=== PATIENT | female | born 1995 | race Caucasian/White ===

== ENCOUNTER 2019-12-24 11:25 | Observation (INO) | payer OTHER, SELFPAY ==
--- NOTE | ~2019-12-24 | US_ITS ---
EXAMINATION: US renal BI DATE: 12/24/2019 13:45 INDICATION: Left abdominal pain. with estimated gestational age of 28 weeks. TECHNIQUE: Multiple ultrasound grayscale images of the kidneys were obtained. COMPARISON: CT abdomen and pelvis 09/05/2018 FINDINGS: The right kidney measures 10.9 x 6.3 x 4.9 cm. The left kidney measures 11.1 x 4.8 x 4.7 cm. The kidn eys demonstrate normal parenchymal echogenicity. There is a 1.1 cm cyst in left kidney. There is no h ydronephrosis. The bladder is not well distended. IMPRESSION: 1. Normal kidney sizes. No hydronephrosis. Reviewed, dictated and finalized at location A.
[2019-12-24 12:25] LABS: Add Urine Microscopic? YES; Appearance Urine Cloudy (Clear); Bacteria Urine Trace /hpf; Bilirubin Urine Negative (Negative); Blood Urine Negative (Negative); Color Urine Yellow (Yellow); Glucose Urine UA Negative (Negative); Ketones Urine Negative (Negative); Leukocyte Esterase Ur 1+ LEU/UL (NEGATIVE); Mucus Urine Rare /lpf; Nitrate Urine Negative (Negative); Protein Urine 1+ mg/dL (Negative); Specific Grav Ur 1.018 (1.001-1.035); Squamous Epithelial Cell Urine Many /hpf (Few); Urobilinogen Urine Negative mg/dL (<2.0)
[2019-12-24] MEDS: SODIUM CHLORIDE 0.9% IV 1,000 ML 999 ML IV CONT (13:58)
[2019-12-24 14:22] LABS: Hematocrit 29.4 % (37.0-47.0); Hemoglobin 9.9 g/dL (12.0-15.0); Mean Corpuscular HGB Conc 33.7 g/dl (32-36); Mean Corpuscular Hemoglobin 30.4 pg (26-34); Mean Corpuscular Volume 90.2 fl (80-100); Platelet Count Result 311 k/mm3 (150-375); Red Blood Count 3.26 M/mm3 (4.2-5.4); Red Cell Distribution Width 12.6 % (11.5-14.5); White Blood Count 11.5 K/mm3 (4.5-10.0)
[2019-12-24 14:24] LABS: Alanine Aminotransferase 12 U/L (4-35); Albumin Level 3.5 g/dL (3.5-5.1); Alkaline Phosphatase 81 U/L (38-126); Aspartate Amino Transferase 18 U/L (14-36); Bilirubin,Total 0.2 mg/dL (0.2-1.3); Blood Urea Nitrogen 4 mg/dL (7-17); Calcium 8.4 mg/dL (8.4-10.2); Carbon Dioxide 21 mmol/L (22-30); Chloride 106 mmol/L (98-107); Estimated Glomerular Filt Rate > 60; Glucose 79 mg/dL (65-105); Potassium 3.6 mmol/L (3.4-5.0); Sodium 133 mmol/L (137-145)
[2019-12-24 15:28] VITALS: BMI 25.9
--- NOTE | 2019-12-24 15:29 | OBADM ---
This patient, Rachelle Hernandez, admitted to the OB room OB Post 116 for observation. Patient/family oriented to hospital policies and general routines including ID bracelet, bed and alarms, visiting hours, pain management, procedures, bathroom and other care routines, personal items, smoking policy, room service/diet, and visiting hours. Patient/Family are encouraged to report perceived risks to care and to ask questions if they do not understand what they are told or what they should do.
--- NOTE | 2019-12-26 08:14 | P.PNOB_ITS ---
OB - Triage/Final Diagnosis Evaluation Laboratory results: Laboratory Tests 12/24/19 12/24/19 12/24/19 12:12 13:59 13:59 WBC 11.5 H RBC 3.26 L Hgb 9.9 L Hct 29.4 L MCV 90.2 MCH 30.4 MCHC 33.7 RDW 12.6 Plt Count 311 MPV 9.0 Sodium 133 L Potassium 3.6 Chloride 106 Carbon Dioxide 21 L BUN 4 L Creatinine 0.40 L Estim Creat Clear Calc Not Reportable Estimated GFR > 60 Glucose 79 Calcium 8.4 Total Bilirubin 0.2 AST 18 ALT 12 Alkaline Phosphatase 81 Total Protein 7.0 Albumin 3.5 Urine Color Yellow Urine Appearance Cloudy H Urine pH 7.0 Ur Specific [place] 1.018 Urine Protein 1+ H Urine Glucose (UA) Negative Urine Ketones Negative Ur Blood (Man) Negative Urine Nitrate Negative Urine Bilirubin Negative Urine Urobilinogen Negative Ur Leukocyte Esterase 1+ H Urine RBC 3-5 H Urine WBC 4-6 H Ur Squamous Epith Cells Many H Urine Bacteria Trace Urine Mucus Rare Final Diagnosis (1) Flank pain in patient: Code(s): O26.899 - Other specified related conditions, unspecified trimester; R10.9 - Unspecified abdominal pain Status: Acute
== END 2019-12-24 17:55 | disposition home or self-care (01) ==
PROVIDERS: Admitting Provider Obstetrics & Gynecology; Visit Provider Obstetrics & Gynecology
DX: O26.893 Other specified pregnancy related conditions, third trimester (principal); R10.9 Unspecified abdominal pain; Z3A.28 28 weeks gestation of pregnancy
CPT/HCPCS: 36415; 76775; 80053; 81001; 85027; 87086; A9270; G0378; G0379; J7030

== ENCOUNTER 2020-01-28 10:18 | Observation (INO) | payer OTHER, SELFPAY ==
--- NOTE | 2020-01-28 10:18 | OBADM ---
This patient, Rachelle Hernandez, admitted to the OB room [facility] 117 for observation. Patient/family oriented to hospital policies and general routines including ID bracelet, bed and alarms, visiting hours, pain management, procedures, bathroom and other care routines, personal items, smoking policy, room service/diet, and visiting hours. Patient/Family are encouraged to report perceived risks to care and to ask questions if they do not understand what they are told or what they should do.
[2020-01-28 10:45] VITALS: BP 108/59; PULSE 98
[2020-01-28 11:00] VITALS: BP 110/55; PULSE 96
--- NOTE | 2020-01-28 11:20 | PC.NURSE ---
Called Dr. Crouch with pt status. Informed that pt states she has been madina since Sunday, but has not felt any contractions since admission. Do SVE. December D/C home if not laboring.
[2020-01-28 12:55] VITALS: BMI 27.6
--- NOTE | 2020-02-10 12:39 | PM.OBTRLD ---
OB - Triage/Final Diagnosis Final Diagnosis (1) False labor: Code(s): O47.9 - False labor, unspecified Status: Acute
== END 2020-01-28 11:50 | disposition home or self-care (01) ==
PROVIDERS: Admitting Provider Obstetrics & Gynecology; Visit Provider Obstetrics & Gynecology
DX: O47.03 False labor before 37 completed weeks of gestation, third trimester (principal); Z3A.33 33 weeks gestation of pregnancy
CPT/HCPCS: G0378; G0379

== ENCOUNTER 2020-02-13 14:12 | Outpatient (CLI) | payer OTHER, SELFPAY ==
[2020-02-13 14:31] VITALS: BP 96/57; PULSE 99
== END 2020-02-13 15:30 | disposition home or self-care (01) ==
LOC: ANHOBOP 15:13 → ANHLDR 15:14
PROVIDERS: Visit Provider Obstetrics & Gynecology
DX: O42.90 Premature rupture of membranes, unspecified as to length of time between rupture and onset of labor, unspecified weeks of gestation (principal)
CPT/HCPCS: 84112; 99199

== ENCOUNTER 2020-03-05 04:50 | Inpatient (IN) | payer OTHER, SELFPAY ==
[2020-03-05] VITALS (155 sets, daily range): BP systolic 84–145; BP diastolic 37–119; PULSE 63–123; RESP 18; TEMP 36.3–37; O2SAT 96–100; BMI 27.6
[2020-03-05 05:29] LABS: Basophils Percent Auto 0.4 % (0.2-1.2); Eosinophils Absolute Auto 0.1 K/mm3 (0-0.3); Hemoglobin 9.8 g/dL (12.0-15.0); Immature Granulocyte Absolute 0.11 K/mm3 (0.00-0.031); Immature Granulocyte Percent A 1.1 % (0-0.5); Lymphocytes Absolute Auto 3.54 K/mm3 (0.9-3.2); Lymphocytes Percent Auto 34.6 % (18.3-44.2); Mean Corpuscular HGB Conc 33.8 g/dl (32-36); Mean Corpuscular Hemoglobin 29.8 pg (26-34); Mean Corpuscular Volume 88.1 fl (80-100); Mean Platelet Volume 9.3 fl (7.4-10.4); Monocytes Absolute Auto 0.7 K/mm3 (0.1-0.6); Monocytes Percent Auto 6.7 % (2.6-8.5); Neutrophils Absolute Auto 5.8 K/mm3 (1.3-6.7); Neutrophils Percent Auto 56.2 % (45.5-73.1); Platelet Count Result 344 k/mm3 (150-375); Red Blood Count 3.29 M/mm3 (4.2-5.4); Red Cell Distribution Width 12.5 % (11.5-14.5); White Blood Count 10.2 K/mm3 (4.5-10.0)
--- NOTE | 2020-03-05 05:40 | LDADM ---
This patient, Rachelle Hernandez, was admitted to Labor/Delivery/Recovery 107 on 03/05/20 at 04:50. Plans for labor, pain management and were discussed with patient. Patient/family oriented to hospital policies and general routines including ID bracelet, bed and alarms, visiting hours, pain management, procedures, bathroom and other care routines, personal items, smoking policy, room service/diet and guest tray routines, infant security routines, and visiting hours. Patient/Family are encouraged to report perceived risks to care and to ask questions if they do not understand what they are told or what they should do. See OBIX for further documentation.
--- NOTE | 2020-03-05 06:06 | PM.IMHP ---
H&P: HPI History of Present Illness Chief complaint: IOL Narrative: Rachelle Hernandez is a 25 year old female whose last menstrual period was 06/06/2019, EDC is 02/10/2030, confirmed by 10 week visit presents at 39 weeks gestation for induction of labor. She is negative for group B strep. She has a favorable cervix. Risks and benefits reviewed Review of Systems Review of Systems: All systems reviewed & are unremarkable except as noted in HPI and below PMFSH Family History Family History Other No pertinent family history Social History Social History Years smoked: 5 Smoking status: Current every day smoker Tobacco type: cigarettes Second hand tobacco smoke exposure: Yes Substance use: never Gender identity (if verbalized by the patient): Female Spiritual care concerns: No Meds Home Medications and Allergies Home Medications Medication Instructions Recorded Confirmed Type PNV cmb#95-ferrous fumarate-FA 1 tablet PO DAILY 02/12/20 02/12/20 History [] Allergies Allergy/AdvReac Type Severity Reaction Status Date / Time No Known Allergies Allergy Verified 04/24/19 13:29 Vital Signs Vital Signs - 24 hr 03/05/20 05:07 03/05/20 05:26 03/05/20 05:31 Pulse Rate 98 91 84 Blood Pressure 104/65 107/61 93/55 L 03/05/20 05:46 03/05/20 06:01 Pulse Rate 80 81 Blood Pressure 99/50 L 89/37 L Exam Const: General: no acute distress Eyes: General: appearance normal, both eyes and all related structures Neck: Neck: supple and no JVD Thyroid: thyroid normal Resp: Effort & Inspection: normal respiratory effort Auscultation: clear to auscultation bilaterally Cardio: Rate: regular rate Rhythm: regular rhythm GI: Inspection: non-distended GI Palp: Yes Soft to palpation, No Tenderness to palpation present (GI) and No Guarding due to palpation present (GI) Auscultation: normal bowel sounds : External Female Exam: normal external appearance Speculum Exam - Vagina: normal appearance of the vagina Speculum Exam - Cervix: Cervical os closed ( cervix 2.5/50%/ -2 attempted AROM. heart tones reassuring) Skin: General skin exam: no rashes or lesions noted Extrem: General: normal to inspection and no edema Psych: Mental Status: mental status grossly normal Affect: normal affect H&P: Results Labs Labs: Short CBC 03/05/20 Range/Units 05:23 WBC 10.2 H (4.5-10.0) K/mm3 Hgb 9.8 L (12.0-15.0) g/dL Hct 29.0 L (37.0-47.0) % Plt Count 344 (150-375) k/mm3 Assessment and Plan Additional Plan impression: Term Plan: Medical induction of labor. Spontaneous vaginal delivery is expected
[2020-03-05] MEDS: LACTATED RINGERS 1,000 ML 125 ML IV CONT ×3 (06:37→15:46)
[2020-03-05] MEDS: OXYTOCIN 30 UNITS/NS 500 ML 30 UNITS/500 ML BAG IV CONT (06:38)
--- NOTE | 2020-03-05 08:19 | WPDANESEPP ---
Anes - Eval Pre Procedure Procedure: Labor epidural Date/Time: 03/05/20 08:19 Preop Diagnosis: pain during Pre Op Diagnosis: IOL Patient Data Age: 25 Gender: F Height: 1.63 m Weight: 73.2 kg Last Vital Signs Temp 36.5 C 03/05/20 08:00 Pulse 94 03/05/20 08:01 BP 93/42 L 03/05/20 08:01 Allergies Allergy/AdvReac Type Severity Reaction Status Date / Time No Known Allergies Allergy Verified 04/24/19 13:29 Home Medications Medication Instructions Recorded Confirmed Type PNV cmb#95-ferrous fumarate-FA 1 tablet PO DAILY 02/12/20 02/12/20 History [] Laboratory Tests 03/05/20 03/05/20 03/05/20 05:23 05:23 05:23 WBC 10.2 K/mm3 H K/mm3 (4.5-10.0) RBC 3.29 M/mm3 L M/mm3 (4.2-5.4) Hgb 9.8 g/dL L g/dL (12.0-15.0) Hct 29.0 % L % (37.0-47.0) MCV 88.1 fl fl (80-100) MCH 29.8 pg pg (26-34) MCHC 33.8 g/dl g/dl (32-36) RDW 12.5 % % (11.5-14.5) Plt Count 344 k/mm3 k/mm3 (150-375) MPV 9.3 fl fl (7.4-10.4) Immature Gran % (Auto) 1.1 % H % (0-0.5) Neut % (Auto) 56.2 % % (45.5-73.1) Lymph % (Auto) 34.6 % % (18.3-44.2) [place] % (Auto) 6.7 % % (2.6-8.5) Eos % (Auto) 1.0 % % (0-4.4) Baso % (Auto) 0.4 % % (0.2-1.2) Lymph # (Auto) 3.54 K/mm3 H K/mm3 (0.9-3.2) [place] # (Auto) 0.7 K/mm3 H K/mm3 (0.1-0.6) Eos # (Auto) 0.1 K/mm3 K/mm3 (0-0.3) Baso # (Auto) 0.0 K/mm3 K/mm3 (0.0-0.1) Abs Immat Gran (auto) 0.11 K/mm3 H K/mm3 (0.00-0.031) Absolute Neuts (auto) 5.8 K/mm3 K/mm3 (1.3-6.7) Absolute Nucleated RBC 0.0 K/mm3 K/mm3 (0.0-0.012) Nucleated RBC % 0.0 % % (0.0-0.2) RPR Pending Blood Type O Positive Antibody Screen Negative Patient hx anesthesia problems: none Family hx anesthesia problems: none PMFSH Family History Family History Other No pertinent family history Social History Social History Years smoked: 5 Smoking status: Current every day smoker Tobacco type: cigarettes Second hand tobacco smoke exposure: Yes Substance use: never Gender identity (if verbalized by the patient): Female Spiritual care concerns: No Exam Day of Procedure 03/05/20 08:19
[2020-03-05 10:52] LABS: Rapid Plasma Reagin Non-Reactive (NonReactive)
--- NOTE | 2020-03-05 11:40 | PM.OBPNVD ---
OB - PN: Subj Subjective Date/time seen: 03/05/20 11:40 Interval history: cx 5 cm by rn exam fhts reassuring OB - PN: Obj Data Labs CBC & Chem 7: 03/05/20 05:23 Labs: Laboratory Results - last 24 hr 03/05/20 03/05/20 03/05/20 05:23 05:23 05:23 WBC 10.2 H RBC 3.29 L Hgb 9.8 L Hct 29.0 L MCV 88.1 MCH 29.8 MCHC 33.8 RDW 12.5 Plt Count 344 MPV 9.3 Immature Gran % (Auto) 1.1 H Neut % (Auto) 56.2 Lymph % (Auto) 34.6 [place] % (Auto) 6.7 Eos % (Auto) 1.0 Baso % (Auto) 0.4 Lymph # (Auto) 3.54 H [place] # (Auto) 0.7 H Eos # (Auto) 0.1 Baso # (Auto) 0.0 Abs Immat Gran (auto) 0.11 H Absolute Neuts (auto) 5.8 Absolute Nucleated RBC 0.0 Nucleated RBC % 0.0 RPR Non-reactive Blood Type O Positive Antibody Screen Negative OB - PN A/P Time Spent With Patient Time: Total time spent is greater than 50% in coordination of care (as documented) at patient's floor/unit and/or counseling patient:
[2020-03-05 13:21] LABS: Amphetamine Screen Urine Negative (Negative); Barbiturate Screen Urine Negative (Negative); Benzodiazepines Screen Urine Negative (Negative); Cannabinoid Screen Urine Negative (Negative); Cocaine Screen Urine Negative (Negative); Methadone Screen Urine Negative (Negative); Opiate Screen Urine Negative (Negative); Phencyclidine Screen Urine Negative (Negative)
--- NOTE | 2020-03-05 14:20 | P.PNOB_ITS ---
OB - PN: Subj Subjective Date/time seen: 03/05/20 14:20 cx 7 cm by rn exam fhts reassuring Interval history: cx 5 cm by rn exam fhts reassuring OB - PN: Obj Data Labs CBC & Chem 7: 03/05/20 05:23 Labs: Laboratory Results - last 24 hr 03/05/20 03/05/20 03/05/20 05:23 05:23 05:23 WBC 10.2 H RBC 3.29 L Hgb 9.8 L Hct 29.0 L MCV 88.1 MCH 29.8 MCHC 33.8 RDW 12.5 Plt Count 344 MPV 9.3 Immature Gran % (Auto) 1.1 H Neut % (Auto) 56.2 Lymph % (Auto) 34.6 [place] % (Auto) 6.7 Eos % (Auto) 1.0 Baso % (Auto) 0.4 Lymph # (Auto) 3.54 H [place] # (Auto) 0.7 H Eos # (Auto) 0.1 Baso # (Auto) 0.0 Abs Immat Gran (auto) 0.11 H Absolute Neuts (auto) 5.8 Absolute Nucleated RBC 0.0 Nucleated RBC % 0.0 Urine Opiates Screen Urine Methadone Screen Ur Barbiturates Screen Ur Phencyclidine Scrn Ur Amphetamine Screen U Benzodiazepines Scrn Urine Cocaine Screen U Cannabinoids Screen RPR Non-reactive Blood Type O Positive Antibody Screen Negative 03/05/20 12:57 WBC RBC Hgb Hct MCV MCH MCHC RDW Plt Count MPV Immature Gran % (Auto) Neut % (Auto) Lymph % (Auto) [place] % (Auto) Eos % (Auto) Baso % (Auto) Lymph # (Auto) [place] # (Auto) Eos # (Auto) Baso # (Auto) Abs Immat Gran (auto) Absolute Neuts (auto) Absolute Nucleated RBC Nucleated RBC % Urine Opiates Screen Negative Urine Methadone Screen Negative Ur Barbiturates Screen Negative Ur Phencyclidine Scrn Negative Ur Amphetamine Screen Negative U Benzodiazepines Scrn Negative Urine Cocaine Screen Negative U Cannabinoids Screen Negative RPR Blood Type Antibody Screen OB - PN A/P Time Spent With Patient Time: Total time spent is greater than 50% in coordination of care (as documented) at patient's floor/unit and/or counseling patient:
--- NOTE | 2020-03-05 16:27 | PM.OBPRVD ---
OB - Delivery Note Procedure Delivery date: 03/05/20 Procedure: mil//repair midline lac Intrapartal events: None Induction method: AROM Delivery augmentation: pitocin Delivery monitor: external FHT Route of delivery: Episiotomy description: None Laceration description: Perineal - 1st Degree Delivery repair: vicryl Specimen: No Estimated blood loss (mL): 57 Anesthesia type: Epidural Disposition: floor [place] Baby Date of : 03/05/20 Time of : 16:17 Weeks of gestation at delivery: 39 gender: Male Weight (pounds): 7 Weight (ounces): 14 position: Right Occiput Anterior Placenta delivery description: Spontaneous cord vessel description: 3 Vessels score one minute: 9 score five minutes: 9
--- NOTE | 2020-03-05 16:29 | PM.DS ---
DS: Admitting Diagnosis Admitting Diagnosis Admitting Diagnosis: term iup DS: Summary Time Spent with Patient Time attestation: Total time spent providing and/or coordinating discharge services: Exam Const: General: no acute distress Eyes: General: appearance normal, both eyes and all related structures Neck: Neck: supple and no JVD Thyroid: thyroid normal Resp: Effort & Inspection: normal respiratory effort Auscultation: clear to auscultation bilaterally Cardio: Rate: regular rate Rhythm: regular rhythm GI: Inspection: non-distended GI Palp: Yes Soft to palpation, No Tenderness to palpation present (GI) and No Guarding due to palpation present (GI) Auscultation: normal bowel sounds : General: Yes bladder normal to palpation External Female Exam: normal external appearance Speculum Exam - Vagina: normal vaginal discharge and No vaginal bleeding Speculum Exam - Cervix: nontender Bimanual exam- vagina & uterus: bladder normal to palpation and No Cervical tenderness present OB/external & speculum: No vaginal bleeding Skin: General skin exam: no rashes or lesions noted Extrem: General: normal to inspection and no edema Psych: Mental Status: mental status grossly normal Affect: normal affect DS: Data Data Completed and Pending Labs on day of discharge: Labs from last 24 hours 03/05/20 03/05/20 03/05/20 12:57 05:23 05:23 WBC RBC Hgb Hct MCV MCH MCHC RDW Plt Count MPV Immature Gran % (Auto) Neut % (Auto) Lymph % (Auto) [place] % (Auto) Eos % (Auto) Baso % (Auto) Lymph # (Auto) [place] # (Auto) Eos # (Auto) Baso # (Auto) Abs Immat Gran (auto) Absolute Neuts (auto) Absolute Nucleated RBC Nucleated RBC % Urine Opiates Screen Negative Urine Methadone Screen Negative Ur Barbiturates Screen Negative Ur Phencyclidine Scrn Negative Ur Amphetamine Screen Negative U Benzodiazepines Scrn Negative Urine Cocaine Screen Negative U Cannabinoids Screen Negative RPR Non-reactive Blood Type O Positive Antibody Screen Negative 03/05/20 05:23 WBC 10.2 H RBC 3.29 L Hgb 9.8 L Hct 29.0 L MCV 88.1 MCH 29.8 MCHC 33.8 RDW 12.5 Plt Count 344 MPV 9.3 Immature Gran % (Auto) 1.1 H Neut % (Auto) 56.2 Lymph % (Auto) 34.6 [place] % (Auto) 6.7 Eos % (Auto) 1.0 Baso % (Auto) 0.4 Lymph # (Auto) 3.54 H [place] # (Auto) 0.7 H Eos # (Auto) 0.1 Baso # (Auto) 0.0 Abs Immat Gran (auto) 0.11 H Absolute Neuts (auto) 5.8 Absolute Nucleated RBC 0.0 Nucleated RBC % 0.0 Urine Opiates Screen Urine Methadone Screen Ur Barbiturates Screen Ur Phencyclidine Scrn Ur Amphetamine Screen U Benzodiazepines Scrn Urine Cocaine Screen U Cannabinoids Screen RPR Blood Type Antibody Screen Discharge Plan Discharge Attending physician on discharge: John Arvizu Discharging Clinician: John Arvizu Patient Disposition: Home, Self-Care Activity: may shower, no straining, may drive after 2 weeks and pelvic rest Diet: heart healthy Patient Instructions: How to Stop Smoking (DC), Antibiotic Form Stand Alone Forms: General Discharge Information Follow-up/Referrals: John Arvizu MD [Physician] - Discharge Medications: Continued PNV cmb#95-ferrous fumarate-FA [] 28 mg iron- 800 mcg Tablet 1 tablet PO DAILY RF: 0 Date of admission: 03/05/20 04:50 Primary Care Provider: PHYSICIAN,INNOVATION MANAGER Admitting Provider: Josse Crouch Attending physician on admission: Josse Crouch
[2020-03-05] MEDS: OXYTOCIN 30 UNITS/NS 500 ML 30 UNITS/500 ML BAG 125 UNITS IV CONT (17:19)
[2020-03-05] MEDS: BENZOCAINE 20% AER SPR (*SP) 56 GM CAN 1 SPRAY TOPICAL (19:15)
[2020-03-05] MEDS: WITCH HAZEL 40 PADS 1 PAD TOPICAL (19:15)
[2020-03-05] MEDS: POLYSACCHARIDE IRON COMPLEX 150 MG CAPSULE PO (20:37)
[2020-03-05] MEDS: IBUPROFEN 600 MG TABLET PO (20:37)
[2020-03-05] MEDS: ACETAMINOPHEN 325 MG TABLET 650 MG PO (21:36)
--- NOTE | 2020-03-05 22:28 | PC.NURSE ---
03/05/20 Patient arrived to unit at 1935 via wheelchair with support person and infant per crib. Assisted to chair per labor RN. Patient oriented to room and orientation packet explained. Patient eating supper with call light in reach. Nolvia MAYO
[2020-03-06] MEDS: IBUPROFEN 600 MG TABLET PO ×2 (04:10→11:24)
[2020-03-06] MEDS: ACETAMINOPHEN 325 MG TABLET 650 MG PO ×2 (04:11→11:24)
[2020-03-06 05:14] LABS: Hemoglobin 8.9 g/dL (12.0-15.0)
--- NOTE | 2020-03-06 07:57 | PM.OBPNVD ---
OB - PN: Subj Subjective Date/time seen: 03/06/20 07:57 Interval history: cx 5 cm by rn exam fhts reassuring Patient comments: no complaints and pain well controlled [place] baby status: doing well and nursing well OB - PN: Obj Data Labs CBC & Chem 7: 03/06/20 04:03 Labs: Laboratory Results - last 24 hr 03/05/20 03/05/20 03/06/20 05:23 12:57 04:03 Hgb 8.9 L Hct 27.0 L Urine Opiates Screen Negative Urine Methadone Screen Negative Ur Barbiturates Screen Negative Ur Phencyclidine Scrn Negative Ur Amphetamine Screen Negative U Benzodiazepines Scrn Negative Urine Cocaine Screen Negative U Cannabinoids Screen Negative RPR Non-reactive OB - PN A/P Plan day: 1 Plan: routine care, discharge home and follow up 6 weeks Time Spent With Patient Time: Total time spent is greater than 50% in coordination of care (as documented) at patient's floor/unit and/or counseling patient: Time with patient: less than 15 minutes Review of Systems Review of Systems: All systems reviewed & are unremarkable except as noted in HPI and below Exam Const: General: no acute distress Eyes: General: appearance normal, both eyes and all related structures Neck: Neck: supple and no JVD Thyroid: thyroid normal Resp: Effort & Inspection: normal respiratory effort Auscultation: clear to auscultation bilaterally Cardio: Rate: regular rate Rhythm: regular rhythm GI: Inspection: non-distended GI Palp: Yes Soft to palpation, No Tenderness to palpation present (GI) and No Guarding due to palpation present (GI) Auscultation: normal bowel sounds : General: Yes bladder normal to palpation External Female Exam: normal external appearance Speculum Exam - Vagina: normal vaginal discharge and No vaginal bleeding Speculum Exam - Cervix: nontender Bimanual exam- vagina & uterus: bladder normal to palpation and No Cervical tenderness present OB/external & speculum: No vaginal bleeding Skin: General skin exam: no rashes or lesions noted Extrem: General: normal to inspection and no edema Psych: Mental Status: mental status grossly normal Affect: normal affect
[2020-03-06 08:40] VITALS: BP 110/55; PULSE 61; RESP 18; TEMP 36.1
[2020-03-06] MEDS: DOCUSATE SODIUM 100 MG CAPSULE PO (11:25)
[2020-03-06] MEDS: POLYSACCHARIDE IRON COMPLEX 150 MG CAPSULE PO (11:25)
--- NOTE | 2020-03-06 14:30 | WPDANLDPN2 ---
Anes-Prog Note L&D Date/Time: 03/06/20 14:30 Comfortable throughout: labor and delivery Neuraxial method: epidural Epidural/Spinal procedure site: clean & non-tender Neuro status: Neuro function grossly intact. Cardiovascular status: normal Respiratory status: normal Airway patency: baseline Mental status: baseline Post-Op hydration status: normal Vital Signs: Last Vital Signs Temp 36.1 C L 03/06/20 08:40 Pulse 61 03/06/20 08:40 Resp 18 03/06/20 08:40 BP 110/55 L 03/06/20 08:40 Pulse Ox 100 03/05/20 19:45 Pain score (VAS): 0/10. Patient resting in bed at time of assessment, appears comfortable. I/O: Intake & Output 03/05/20 03/06/20 03/06/20 23:59 07:59 15:59 Intake Total 500 240 Output Total 150 Balance 350 240 Post-procedural complaints: none Patient feedback: Patient satisfied with anesthetic care.
[2020-03-09 10:09] VITALS: BP 105/77; PULSE 97; RESP 20; TEMP 37.3; O2SAT 99
== END 2020-03-06 17:54 | disposition home or self-care (01) | DRG 560 ==
LOC: ANHLDR 05:37 → ANHOB2 03-06 02:55 → ANHLDR 03-08 20:09 → ANHOB2 03-08 20:09
PROVIDERS: Admitting Provider Obstetrics & Gynecology; Visit Provider Obstetrics & Gynecology
DX: O99.334 Smoking (tobacco) complicating childbirth (principal); F17.210 Nicotine dependence, cigarettes, uncomplicated; O70.0 First degree perineal laceration during delivery; Z3A.39 39 weeks gestation of pregnancy; Z37.0 Single live birth
CPT/HCPCS: 36415; 80307; 85014; 85018; 85025; 86592; 86850; 86900; 86901; A9270; J2590; J2795; J7120

== ENCOUNTER 2020-10-18 17:47 | Emergency (ER) | payer OTHER, SELFPAY ==
--- NOTE | 2020-10-18 18:04 | PC.NURSE ---
Pt decided she didn't want to be seen and ambulated to the exit
== END 2020-10-18 18:30 | disposition left against medical advice (07) ==
DX: Z53.21 Procedure and treatment not carried out due to patient leaving prior to being seen by health care provider (principal)
CPT/HCPCS: 99199

== ENCOUNTER 2021-05-30 12:30 | Outpatient (RCR) | payer OTHER, SELFPAY ==
--- NOTE | 2021-04-20 13:31 | PTOPEVAL ---
PHYSICAL THERAPY EVALUATION AND PLAN OF CARE 04-20-21 Thank you for referring Rachelle Hernandez to [facility].? She is scheduled to be seen for therapy? 1x/week for 6 weeks. Please review, sign, date and return this plan of care MARY. I agree with and certify that the following plan of care is medically necessary. Referring Physician Date Attending Provider: Josse Crouch MD PT Outpatient Evaluation Document 04/20/21 12:30 ISELA (Rec: 04/20/21 13:31 ISELA [id number]) Past Medical History Source of Past Medical History Recalled from Previous Visit, Confirmed with Patient/Family Neurological History Hx Migraine Yes Cardiovascular History Hx Cardiac Disorders No Significant History Respiratory History Hx Respiratory Disorders No Significant History Gastrointestinal History Hx Gastrointestinal Disorders No Significant History Genitourinary History Hx Genitourinary Disorders No Significant History Musculoskeletal History Hx Back Pain Yes Hematological History Hx Hematological Disorders No Significant History Endocrine History Hx Endocrine Disorders No Significant History HEENT History Hx HEENT Disorders No Significant History Integumentary History Hx Skin Disorders No Significant History Reproductive History Hx Other Reproductive Disorders Yes: PELVIC PAIN Psychosocial History Hx Anxiety Yes Pain History History of Any Previous or Ongoing No Significant History Instance of Pain Anesthesia History Hx Anesthesia Reactions No Significant History Evaluation Information Problem Diagnosis L hip pain with pregnacy Onset March 13, 2012 Subjective Information gradual increase in L hip pain Query Text:As Reported By Patient/ with Family Diagnostic Tests X-Rays For This Problem No MRI For This Problem No Other Tests For This Problem No Previous Treatments Previous Treatments For This Problem previous PT for back, hips, knee pain Prior Level of Function Activity Level (Last 3 Months) 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
--- NOTE | 2021-04-25 10:38 | PCPTNOTE ---
Patient called & cancelled scheduled appointment this date due to child being sick.
--- NOTE | 2021-05-16 12:57 | PCPTNOTE ---
Patient did not show up for scheduled appointment this date. Called and left message about missed appointment. Reminded Pt of upcoming appointment and to call if unable to make or if she had questions or concerns. This is Pt's first N/S.
--- NOTE | 2021-05-30 13:16 | PTOPEVAL ---
PHYSICAL THERAPY DISCHARGE 05-30-21 Refer to the clinical summary below, for her status today, compared to the initial evaluation. The goals were partially achieved. Discharge PT services. She is to continue with her home exercises and self management of back and hip pain. Thank you for referring Rachelle Hernandez to [facility].? Please review, sign, date and return this Discharge Report MARY. I agree with and certify that the following plan of care is medically necessary. Referring Physician Date Attending Provider: Josse Crouch MD Document 05/30/21 12:35 ISELA (Rec: 05/30/21 13:15 ISELA [id number]) Assessment Status Discharge Subjective Information Rachelle reports: have looked Query Text:As Reported By Patient/ into the back support brace, Family but not gotten one yet; would be good to use when at work; Pain Assessment Timing of Pain Assessment Timing of Pain Assessment Assessment Pain Scale Pain Scale Used Numeric (1 - 10) Self Report Pain Assessment Left Hip(s) Reported Pain Level 0 Pain Frequency Chronic,Intermittent Pain Score Pain Score 0: Self Report Additional Pain Score Comments have not had any pain for the past 3 days--worked and cleaned house without any problems; able to lie on her L side without any problems; not hurt past few days with walking and standing- able to be up on feet for one hour, rest alot due to ; Interventions Used Interventions Used By Clinicians Education,Exercise Pain Relief Interventions Used By Heat,Inactivity/Rest, Patient Medication Other Alleviating Interventions hot bath, heating pad; tylenol PRN Cervical and Lumbar ROM Lumbar ROM Lumbar Comments standing trunk flexion and extension without an increase in pain reported; Lower Extremity Range of Motion General Lower Extremity Range of Motion Gross Lower Extremity Range of Motion supine: R hip IR and ER Comments without pain reported; L hip IR-sharp pain lateral hip, then ease with return to neutral; stretching in sitting position : hip ER, trunk flexion, trunk extension, trunk rotation R/L ; trunk side bend R/L 3 reps each; Lower Extremity Muscle Strength Testing General Lower Extremity Strength Gross Lower Extremity Str
== END 2021-05-30 16:05 | disposition home or self-care (01) ==
LOC: ANHPT 12:30
PROVIDERS: Visit Provider Obstetrics & Gynecology
DX: O26.893 Other specified pregnancy related conditions, third trimester (principal); M25.552 Pain in left hip; Z3A.12 12 weeks gestation of pregnancy
CPT/HCPCS: 97110; 97140; 97161

== ENCOUNTER 2021-08-29 09:45 | Emergency (ER) | payer OTHER, SELFPAY ==
[2021-08-29 09:50] VITALS: BP 103/50; PULSE 86; RESP 18; TEMP 36.5; O2SAT 100
[2021-08-29 10:04] VITALS: BP 103/50; PULSE 86; RESP 20; TEMP 36.5; O2SAT 100
--- NOTE | 2021-08-29 10:37 | ED.GENADULT ---
HPI - General Adult General Chief complaint: Fall Stated complaint: fall/back and abd pain/31 weeks Time Seen by Provider: 08/29/21 10:11 History of Present Illness HPI narrative: Patient is a 26-year-old female 31 weeks G3, P2 who comes into the ED today after having a mechanical fall. Patient reports that she had a ground-level fall this morning, she slipped and fell on the ice, landing on the left side of her low back. She is having some pain in the left side of her low back that is nonradiating. She is having some pain on the medial aspect of left knee because she hit that against the ground. She still having some pain in lower abdomen and both flanks. There is no vaginal bleeding. She admits to nausea with vomiting. She vomited once this morning before the fall and then once again since the fall and she is feeling nauseous now. She is concerned that she might have influenza because her children at home have influenza currently, both tested positive for influenza over the weekend. She denies any fevers or body aches or any other concerns. Says that the vomiting has not been much of an issue during her so far. She is followed by Dr. Shah. She can feel the baby move. Related Data Home Medications Medication Instructions Recorded Confirmed PNV cmb#95-ferrous fumarate-FA 1 tablet PO DAILY 02/12/20 02/12/20 [] fluoxetine 20 mg 08/29/21 Allergies Allergy/AdvReac Type Severity Reaction Status Date / Time No Known Allergies Allergy Verified 08/29/21 10:06 Review of Systems Constitutional: Constitutional: Reports as per HPI, Denies fever(s), Denies night sweats and Denies weakness Cardiovascular: Cardiovascular: Denies chest pain, Denies edema, Denies leg edema, Denies dyspnea and Denies orthopnea Respiratory: Respiratory: Denies cough and Denies dyspnea Gastrointestinal: Gastrointestinal: Reports abdominal pain, Denies constipation, Denies diarrhea, Denies nausea and Denies vomiting Musculoskeletal: Musculoskeletal: Denies abnormal gait, Denies back pain, Denies numbness and Denies tingling Comments: See HPI Neurologic: Denies Abnormal speech present, Denies abnormal gait, Denies numbness, Denies tingling and Denies weakness Psychiatric: Psychiatric: Denies homicidal ideation and Denies suicidal ideation [facility] Family History Family History Other No pertinent family history Social History Social History Years smoked: 5 Smoking status: Current every day smoker Tobacco type: cigarettes Second hand tobacco smoke exposure: Yes Substance use: never Gender identity (if verbalized by the patient): Female Spiritual care concerns: No Exam Const: General: cooperative, healthy appearing, comfortable, no acute distress, well developed, alert, awake and Physically active Orientation/consciousness: patient oriented x3 HENMT: Head: normal to inspection, normocephalic and atraumatic Ears: external ears normal General nose exam: Normal external nose present Eyes: Pupils: Equal, round and reactive pupils present EOM: EOMs intact bilaterally Neck: Neck: normal visual inspection Chest: Chest palpation & inspection: normal inspection of the chest and no tenderness Resp: Effort & Inspection: normal respiratory effort and able to speak in complete sentences Auscultation: clear to auscultation bilaterally Cardio: Rate: regular rate Rhythm: regular rhythm GI: Inspection: other (Gravid abdomen. Tender to palpate over both flanks.) GI Palp: Yes abdominal tenderness : General: Yes no CVA tenderness Back/Spine/Pelvis: Back: no CVA tenderness Back/spine/pelvis image: 1. Tender to palpate over this area of her low back. No midline tenderness. Full range of motion of trunk. Neuro vascularly intact throughout. Skin: General skin exam: normal col
[2021-08-29] MEDS: ACETAMINOPHEN 325 MG TABLET 650 MG PO (11:53)
[2021-08-29] MEDS: ONDANSETRON HCL ODT 4 MG TABLET PO (11:53)
[2021-08-29 12:00] VITALS: BP 100/60; PULSE 97; RESP 14; O2SAT 99
[2021-08-29 13:00] VITALS: BP 101/66
== END 2021-08-29 13:00 | disposition home or self-care (01) ==
PROVIDERS: Emergency Provider Emergency Medicine
DX: O9A.213 Injury, poisoning and certain other consequences of external causes complicating pregnancy, third trimester (principal); S39.92XA Unspecified injury of lower back, initial encounter; S80.02XA Contusion of left knee, initial encounter; O26.893 Other specified pregnancy related conditions, third trimester; R10.9 Unspecified abdominal pain; O21.2 Late vomiting of pregnancy; O99.333 Smoking (tobacco) complicating pregnancy, third trimester; F17.210 Nicotine dependence, cigarettes, uncomplicated; Z3A.31 31 weeks gestation of pregnancy
CPT/HCPCS: 87804; 99283; A9270

== ENCOUNTER 2021-08-29 13:06 | Outpatient (RCR) | payer OTHER, SELFPAY ==
[2021-08-29 14:07] VITALS: BP 92/50; PULSE 80
== END 2021-10-25 10:45 | disposition home or self-care (01) ==
LOC: ANHOBOP 13:06
PROVIDERS: Visit Provider Obstetrics & Gynecology
DX: O99.891 Other specified diseases and conditions complicating pregnancy (principal); W19.XXXA Unspecified fall, initial encounter; Z3A.30 30 weeks gestation of pregnancy
CPT/HCPCS: 59025

== ENCOUNTER 2021-09-10 15:13 | Observation (INO) | payer OTHER, SELFPAY ==
[2021-09-10 15:30] VITALS: BMI 26.1
[2021-09-10 16:00] VITALS: BP 103/52; PULSE 81
[2021-09-10 16:07] VITALS: TEMP 36.8
[2021-09-10 16:15] VITALS: BP 100/52; PULSE 83
[2021-09-10 16:25] LABS: Add Urine Microscopic? YES; Appearance Urine Clear (Clear); Bacteria Urine Trace /hpf; Bilirubin Urine Negative (Negative); Blood Urine Negative (Negative); Color Urine Yellow (Yellow); Glucose Urine UA Negative (Negative); Ketones Urine Negative (Negative); Leukocyte Esterase Ur Trace LEU/UL (NEGATIVE); Mucus Urine Rare /lpf; Nitrate Urine Negative (Negative); Protein Urine Negative (Negative); RBC Urine 0-2 /hpf (0-2); Specific Grav Ur 1.021 (1.001-1.035); Squamous Epithelial Cell Urine Occasional /hpf (Few); WBC Urine 0-3 /hpf (0-3)
[2021-09-10 16:30] VITALS: BP 99/47; PULSE 80
[2021-09-10 16:45] VITALS: BP 100/44; PULSE 78
[2021-09-10] MEDS: TERBUTALINE SULFATE 1 MG/ML VIAL 0.25 MG SUB-Q ×2 (16:52→17:53)
[2021-09-10 19:41] LABS: Fetal Fibronectin Negative
--- NOTE | 2021-09-11 09:16 | PM.OBTRLD ---
OB - Triage/Final Diagnosis Visit Information Date of evaluation: 09/10/21 Reason for evaluation: threatened labor Comments/Additional reasons for admission: I have assessed the risk for this patient, Rachelle Hernandze, and determined that she would benefit from observation care. Evaluation Laboratory results: Laboratory Tests 09/10/21 09/10/21 16:04 19:10 Urine Color Yellow Urine Appearance Clear Urine pH 6.0 Ur Specific [place] 1.021 Urine Protein Negative Urine Glucose (UA) Negative Urine Ketones Negative Ur Blood (Man) Negative Urine Nitrate Negative Urine Bilirubin Negative Urine Urobilinogen 2.0 H Ur Leukocyte Esterase Trace H Urine RBC 0-2 Urine WBC 0-3 Ur Squamous Epith Cells Occasional Urine Bacteria Trace Urine Mucus Rare Fibronectin Negative Vital signs: Vital Signs - 24 hr 09/10/21 16:00 09/10/21 16:07 09/10/21 16:15 Temperature 98.3 F Pulse Rate 81 83 Blood Pressure 103/52 L 100/52 L 09/10/21 16:30 09/10/21 16:45 Temperature Pulse Rate 80 78 Blood Pressure 99/47 L 100/44 L
== END 2021-09-10 19:52 | disposition home or self-care (01) ==
PROVIDERS: Obstetrics & Gynecology; Admitting Provider Obstetrics & Gynecology; Visit Provider Obstetrics & Gynecology
DX: O47.03 False labor before 37 completed weeks of gestation, third trimester (principal); Z3A.32 32 weeks gestation of pregnancy
CPT/HCPCS: 81001; 82731; 84112; 87086; 96372; G0378; G0379; J3105

== ENCOUNTER 2021-09-19 15:35 | Observation (INO) | payer OTHER, SELFPAY ==
[2021-09-19 15:55] VITALS: BP 102/57; PULSE 83
[2021-09-19 16:01] VITALS: BP 108/59; PULSE 91
[2021-09-19] MEDS: TERBUTALINE SULFATE 1 MG/ML VIAL 0.25 MG SUB-Q (16:43)
[2021-09-19 17:01] VITALS: BP 110/80; PULSE 94
[2021-09-19] MEDS: NIFEdipine 10 MG CAPSULE PO ×2 (17:37→18:12)
[2021-09-19 18:01] VITALS: BP 102/60; PULSE 98
[2021-09-19 18:14] VITALS: BMI 25.7
--- NOTE | 2021-09-19 18:14 | OBADM ---
This patient, Rachelle Hernandez, admitted to the OB room OB Post 113 for observation. Patient/family oriented to hospital policies and general routines including ID bracelet, bed and alarms, visiting hours, pain management, procedures, bathroom and other care routines, personal items, smoking policy, room service/diet, and visiting hours. Patient/Family are encouraged to report perceived risks to care and to ask questions if they do not understand what they are told or what they should do.
[2021-09-19 19:01] VITALS: BP 107/54; PULSE 102
[2021-09-19 19:55] VITALS: BP 110/57; PULSE 93
--- NOTE | 2021-09-19 22:22 | PC.NURSE ---
1938- called,informed pt states her cramping has decreased significantly since she arrived and she would like to go home and will f/u with him in the office this . Informed fhr was elevated for around 45 minutes after receiving medication for her contractions. Baseline is back WNL now and reactive.Orders received to discharge pt and script for procardia will be sent to pharmacy.
--- NOTE | 2021-10-17 12:03 | PM.OBTRLD ---
OB - Triage/Final Diagnosis Visit Information Comments/Additional reasons for admission: I have assessed the risk for this patient, Rachelle Hernandez, and determined that she would benefit from observation care. Final Diagnosis (1) Abdominal pain affecting , antepartum: Code(s): O26.899 - Other specified related conditions, unspecified trimester; R10.9 - Unspecified abdominal pain Status: Acute
== END 2021-09-19 20:00 | disposition home or self-care (01) ==
PROVIDERS: Admitting Provider Obstetrics & Gynecology; Visit Provider Obstetrics & Gynecology
DX: O26.893 Other specified pregnancy related conditions, third trimester (principal); R10.9 Unspecified abdominal pain; Z3A.34 34 weeks gestation of pregnancy
CPT/HCPCS: 96372; A9270; G0378; G0379; J3105

== ENCOUNTER 2021-10-20 06:00 | Inpatient (IN) | payer OTHER, SELFPAY ==
[2021-10-20] VITALS (48 sets, daily range): BP systolic 78–113; BP diastolic 21–76; PULSE 50–97; RESP 16–18; TEMP 36–36.7; O2SAT 92–100; BMI 59.4
--- NOTE | 2021-10-20 06:43 | LDADM ---
This patient, Rachelle Hernandez, was admitted to Labor/Delivery/Recovery 105 on 10/20/21 at 06:00. Plans for labor, pain management and were discussed with patient. Patient/family oriented to hospital policies and general routines including ID bracelet, bed and alarms, visiting hours, pain management, procedures, bathroom and other care routines, personal items, smoking policy, room service/diet and guest tray routines, infant security routines, and visiting hours. Patient/Family are encouraged to report perceived risks to care and to ask questions if they do not understand what they are told or what they should do. See OBIX for further documentation.
[2021-10-20 07:15] LABS: Basophils Absolute Auto 0.1 K/mm3 (0.0-0.1); Basophils Percent Auto 0.5 % (0.2-1.2); Eosinophils Absolute Auto 0.1 K/mm3 (0-0.3); Eosinophils Percent Auto 0.5 % (0-4.4); Hematocrit 31.7 % (37.0-47.0); Hemoglobin 10.4 g/dL (12.0-15.0); Immature Granulocyte Absolute 0.08 K/mm3 (0.00-0.031); Immature Granulocyte Percent A 0.8 % (0-0.5); Immature Platelet Fraction Pct 3.8 % (0.9-11.2); Lymphocytes Absolute Auto 3.01 K/mm3 (0.9-3.2); Lymphocytes Percent Auto 30.8 % (18.3-44.2); Mean Corpuscular HGB Conc 32.8 g/dl (32-36); Mean Corpuscular Hemoglobin 29.1 pg (26-34); Mean Corpuscular Volume 88.8 fl (80-100); Mean Platelet Volume 10.2 fl (7.4-10.4); Monocytes Absolute Auto 0.8 K/mm3 (0.1-0.6); Monocytes Percent Auto 7.7 % (2.6-8.5); Neutrophils Absolute Auto 5.8 K/mm3 (1.3-6.7); Neutrophils Percent Auto 59.7 % (45.5-73.1); Platelet Count Result 287 k/mm3 (150-375); Red Blood Count 3.57 M/mm3 (4.2-5.4); Red Cell Distribution Width 12.9 % (11.5-14.5); White Blood Count 9.8 K/mm3 (4.5-10.0)
[2021-10-20 07:31] LABS: Alanine Aminotransferase 13 U/L (4-35); Albumin Level 3.8 g/dL (3.5-5.1); Alkaline Phosphatase 164 U/L (38-126); Anion Gap 8 mmol/L (8-16); Aspartate Amino Transferase 31 U/L (14-36); Bilirubin,Total 0.6 mg/dL (0.2-1.3); Blood Urea Nitrogen 10 mg/dL (7-17); Calcium 8.5 mg/dL (8.4-10.2); Carbon Dioxide 20 mmol/L (22-30); Chloride 105 mmol/L (98-107); Estimated CRCL calculation 217 ml/min; Estimated Glomerular Filt Rate > 60; Glucose 99 mg/dL (65-110); Sodium 133 mmol/L (137-145); Uric Acid 4.8 mg/dL (2.5-7.5)
[2021-10-20] MEDS: OXYTOCIN 30 UNITS/NS 500 ML 30 UNITS/500 ML BAG IV CONT (07:41)
[2021-10-20] MEDS: LACTATED RINGERS 1,000 ML 125 ML IV CONT ×2 (07:42→08:30)
--- NOTE | 2021-10-20 08:45 | WPDANESEPP ---
Anes - Eval Pre Procedure Procedure: labor epidural Date/Time: 10/20/21 08:45 Surgeon: bibiana Preop Diagnosis: pain during labor Pre Op Diagnosis: Induction of Labor Patient Data Age: 26 Gender: F Height: 1.63 m Weight: 157 kg Last Vital Signs Temp 36.2 C L 10/20/21 06:30 Pulse 70 10/20/21 08:42 BP 100/62 10/20/21 08:42 Pulse Ox 100 10/20/21 08:44 Allergies Allergy/AdvReac Type Severity Reaction Status Date / Time No Known Allergies Allergy Verified 08/29/21 10:06 Home Medications Medication Instructions Recorded Confirmed Type PNV cmb#95-ferrous fumarate-FA 1 tablet PO DAILY 02/12/20 10/20/21 History [] fluoxetine 40 mg PO DAILY 08/29/21 10/20/21 History ondansetron 4 mg PO Q6H PRN #6 tablet 08/29/21 10/20/21 Rx nifedipine 10 mg PO Q6H #30 cap 09/19/21 10/20/21 Rx Laboratory Tests 10/20/21 10/20/21 10/20/21 07:00 07:00 07:00 WBC 9.8 K/mm3 K/mm3 (4.5-10.0) RBC 3.57 M/mm3 L M/mm3 (4.2-5.4) Hgb 10.4 g/dL L g/dL (12.0-15.0) Hct 31.7 % L % (37.0-47.0) MCV 88.8 fl fl (80-100) MCH 29.1 pg pg (26-34) MCHC 32.8 g/dl g/dl (32-36) RDW 12.9 % % (11.5-14.5) Plt Count 287 k/mm3 k/mm3 (150-375) MPV 10.2 fl fl (7.4-10.4) Immature Gran % (Auto) 0.8 % H % (0-0.5) Neut % (Auto) 59.7 % % (45.5-73.1) Lymph % (Auto) 30.8 % % (18.3-44.2) [place] % (Auto) 7.7 % % (2.6-8.5) Eos % (Auto) 0.5 % % (0-4.4) Baso % (Auto) 0.5 % % (0.2-1.2) Lymph # (Auto) 3.01 K/mm3 K/mm3 (0.9-3.2) [place] # (Auto) 0.8 K/mm3 H K/mm3 (0.1-0.6) Eos # (Auto) 0.1 K/mm3 K/mm3 (0-0.3) Baso # (Auto) 0.1 K/mm3 K/mm3 (0.0-0.1) Abs Immat Gran (auto) 0.08 K/mm3 H K/mm3 (0.00-0.031) Absolute Neuts (auto) 5.8 K/mm3 K/mm3 (1.3-6.7) Absolute Nucleated RBC 0.0 K/mm3 K/mm3 (0.0-0.012) Nucleated RBC % 0.0 % % (0.0-0.2) % Immature Plt Fraction 3.8 % % (0.9-11.2) Sodium 133 mmol/L L mmol/L (137-145) Potassium 4.0 mmol/L mmol/L (3.4-5.0) Chloride 105 mmol/L mmol/L (98-107) Carbon Dioxide 20 mmol/L L mmol/L (22-30) Anion Gap 8 mmol/L mmol/L (8-16) BUN 10 mg/dL D mg/dL (7-17) Creatinine 0.50 mg/dL L mg/dL (0.7-1.0) Estim Creat Clear Calc 217 ml/min ml/min Estimated GFR > 60 (59 - ) Glucose 99 mg/dL mg/dL (65-110) Uric Acid 4.8 mg/dL mg/dL (2.5-7.5) Calcium 8.5 mg/dL mg/dL (8.4-10.2) Total Bilirubin 0.6 mg/dL mg/dL (0.2-1.3) AST 31 U/L U/L (14-36) ALT 13 U/L U/L (4-35) Alkaline Phosphatase 164 U/L H U/L (38-126) Total Protein 7.0 g/dL g/dL (6.3-8.2) Albumin 3.8 g/dL g/dL (3.5-5.1) RPR Pending Patient hx anesthesia problems: none Family hx anesthesia problems: none Results Review: All pre-operative results and documents have been reviewed as part of the pre-operative evaluation. [facility] Family History Family History Other No pertinent family history Social History Social History Years smoked: 5 Smoking status: Former smoker Tobacco type: cigarettes Second hand tobacco smoke exposure: No Smoking end date: 04/13/21 Substance use: former Gender identity (if verbalized by the patient): Female Spiritual care concerns: No Exam Day of Procedure 10/20/21 08:45
--- NOTE | 2021-10-20 09:00 | WPDOBADMIT ---
Obstetrics - Admit Note Admission Note: record reviewed. Additions to the history and/or subsequent changes in the physical findings follow. 26 y/o at 39 weeks here for induction of labor. GBS neg. AVSS NST reactive TOCO: contractions every 2-4 min ABD soft, nontender, gravid, vertex EXT nontender Cervix 4/50/-2. AROM with clear fluid. Vertex. A: IUP at term with favorable cervix, desiring induction of labor. P: Oxytocin. Anticipate .
[2021-10-20 11:36] LABS: Rapid Plasma Reagin Non-Reactive (NonReactive)
--- NOTE | 2021-10-20 12:33 | PM.OBPRVD ---
OB - Delivery Note Procedure Delivery date: 10/20/21 Procedure: Induction of labor with Induction method: AROM and Per Pitocin Protocol Delivery monitor: External FHT and External Uterine Route of delivery: Laceration Description: Perineal - 2nd Degree Delivery repair: vicryl (3-0) Specimen: Yes (cord blood) Quantitative Blood Loss (ml): 125 Anesthesia type: Epidural Disposition: PACU Complications: None Narrative: 26 y/o at 39 weeks gestation who presented to the hospital for induction of labor. Oxytocin was administered intravenously. Amniotomy was performed with return of clear fluid. She received an epidural for pain control. Her labor progressed and her cervix dilated completely. She pushed with good effort and delivered the 's head to the perineum, followed by the body. The nose and mouth were bulb suctioned. After a delay, the cord was clamped and cut. The infant was handed off the field. Cord blood was collected. The placenta delivered spontaneously and was grossly normal in appearance. The usual 3 vessel cord was noted. A second degree midline perineal laceration was sustained. This was reapproximated using 3 0 Vicryl in the usual layered fashion. Excellent hemostasis resulted as did excellent reapproximation of the normal anatomy. Needle and instrument counts were correct. The patient was taken to recovery room in stable condition. The infant went to the nursery in stable condition. I was present and scrubbed for the entire delivery. [place] Baby Date of : 10/20/21 Time of : 12:14 Weeks of gestation at delivery: 39 Infant gender: Male Weight (pounds): 9 Weight (ounces): 3 presentation: vertex position: Right Occiput Anterior Placenta delivery description: Spontaneous and Normal Configuration Cord Vessel Description: 3 Vessels and Delayed Cord Clamping score one minute: 8 score five minutes: 9
--- NOTE | 2021-10-20 12:35 | PM.OBDSVD ---
DS: Admitting Diagnosis Discharge Date 10/21/21 Admitting Diagnosis IUP at 39 weeks DS: Discharge Diagnosis Discharge Diagnosis (1) (normal spontaneous vaginal delivery): Code(s): O80 - Encounter for full-term uncomplicated delivery Status: Acute OB - DS: Summary OB Procedures : None OB Procedures Intrapartum: Spontaneous Vag Delivery OB Procedures: : None DS: Data Data Completed and Pending Labs on day of discharge: Labs from last 24 hours 10/20/21 10/20/21 10/20/21 07:00 07:00 07:00 WBC RBC Hgb Hct MCV MCH MCHC RDW Plt Count MPV Immature Gran % (Auto) Neut % (Auto) Lymph % (Auto) [place] % (Auto) Eos % (Auto) Baso % (Auto) Lymph # (Auto) [place] # (Auto) Eos # (Auto) Baso # (Auto) Abs Immat Gran (auto) Absolute Neuts (auto) Absolute Nucleated RBC Nucleated RBC % % Immature Plt Fraction Sodium 133 L Potassium 4.0 Chloride 105 Carbon Dioxide 20 L Anion Gap 8 BUN 10 D Creatinine 0.50 L Estim Creat Clear Calc 217 Estimated GFR > 60 Glucose 99 Uric Acid 4.8 Calcium 8.5 Total Bilirubin 0.6 AST 31 ALT 13 Alkaline Phosphatase 164 H Total Protein 7.0 Albumin 3.8 RPR Non-reactive Blood Type O Positive Antibody Screen Negative 10/20/21 07:00 WBC 9.8 RBC 3.57 L Hgb 10.4 L Hct 31.7 L MCV 88.8 MCH 29.1 MCHC 32.8 RDW 12.9 Plt Count 287 MPV 10.2 Immature Gran % (Auto) 0.8 H Neut % (Auto) 59.7 Lymph % (Auto) 30.8 [place] % (Auto) 7.7 Eos % (Auto) 0.5 Baso % (Auto) 0.5 Lymph # (Auto) 3.01 [place] # (Auto) 0.8 H Eos # (Auto) 0.1 Baso # (Auto) 0.1 Abs Immat Gran (auto) 0.08 H Absolute Neuts (auto) 5.8 Absolute Nucleated RBC 0.0 Nucleated RBC % 0.0 % Immature Plt Fraction 3.8 Sodium Potassium Chloride Carbon Dioxide Anion Gap BUN Creatinine Estim Creat Clear Calc Estimated GFR Glucose Uric Acid Calcium Total Bilirubin AST ALT Alkaline Phosphatase Total Protein Albumin RPR Blood Type Antibody Screen Discharge Plan Discharge Attending physician on discharge: Josse Crouch Discharging Clinician: Josse Crouch Patient Disposition: Home, Self-Care Activity: pelvic rest Diet: regular Discharge Instructions: Call or return if temperature above 100.4? F, increased abdominal pain, increased vaginal bleeding or any new problems. Education: Mom and Baby Guide and Preeclampsia Handout Given to: Mother Follow-Up: Call your delivering provider's office for an appointment to be seen in: 6 Weeks Mom and baby should come to the [facility] for the follow-up appointment. Appointment Date/Time: October 24, 2021 at 11:00 am What to expect at your follow-up visit: Physical Assessment Call [phone] if you are unable to keep your appointment time. BREAST CARE: * Wear a snug supportive bra. * For engorgement discomfort: Bottle Feeding: * May apply ice packs EPISIOTOMY/PERINEAL CARE: * Until bleeding stops, use your arpit bottle after urinating * Change your pad frequently throughout the day * You may take sitz baths several times a day (fill your bathtub with warm water and soak for 20 minutes.) Do NOT bathe in the water * No tub baths until seen by your physician - You may shower ACTIVITY: * Rest as much as possible. * Do not exercise or lift anything heavier than your baby (such as laundry or other children.) * Avoid stairs or driving as much as possible. * Do not put anything into the vagina. No douching, tampons, or sexual activity until seen by physician. NOTIFY PHYSICIAN IF YOU HAVE ANY QUESTIONS OR IF ANY OF THE FOLLOWING SYMPTOMS OCCUR: * If your episiotomy becomes red, swollen, or more painful than what you have experienced in the hospital. * If your vaginal bleeding becomes foul smelling. * If y
[2021-10-20] MEDS: OXYTOCIN 30 UNITS/NS 500 ML 30 UNITS/500 ML BAG 125 UNITS IV CONT (12:39)
[2021-10-20] MEDS: WITCH HAZEL 40 PADS 1 PAD TOPICAL (14:18)
[2021-10-20] MEDS: BENZOCAINE 20% AER SPR (*SP) 56 GM CAN 1 SPRAY TOPICAL (14:18)
--- NOTE | 2021-10-20 15:43 | PC.NURSE ---
Patient transferred to post room #284 via wheelchair from labor and delivery. Support person present. Oriented to unit, room, information board, rooming in, admission packet and security measures. Patient verbalizes understanding.
[2021-10-20] MEDS: IBUPROFEN 600 MG TABLET PO (16:52)
[2021-10-20] MEDS: ACETAMINOPHEN 325 MG TABLET 650 MG PO (20:50)
[2021-10-21] VITALS: BP 90/56; PULSE 62; RESP 16; TEMP 36.6; O2SAT 99
[2021-10-21] MEDS: IBUPROFEN 600 MG TABLET PO ×2 (00:48→08:56)
[2021-10-21 04:00] VITALS: BP 100/59; PULSE 58; RESP 16; TEMP 36.9; O2SAT 100
[2021-10-21] MEDS: ACETAMINOPHEN 325 MG TABLET 650 MG PO (04:47)
[2021-10-21 04:57] LABS: Hematocrit 26.9 % (37.0-47.0); Hemoglobin 8.7 g/dL (12.0-15.0)
[2021-10-21 07:50] VITALS: BP 89/42; PULSE 66; RESP 18; TEMP 36.4; O2SAT 100
[2021-10-21] MEDS: DOCUSATE SODIUM 100 MG CAPSULE PO (08:56)
[2021-10-21] MEDS: POLYSACCHARIDE IRON COMPLEX 150 MG CAPSULE PO (08:56)
[2021-10-21] MEDS: FLUoxetine HCL 20 MG CAPSULE 40 MG PO (08:57)
--- NOTE | 2021-10-21 09:28 | WPDANLDPN2 ---
Anes-Prog Note L&D Date/Time: 10/21/21 09:28 Comfortable throughout: labor and delivery Neuraxial method: epidural Epidural/Spinal procedure site: clean & non-tender Neuro status: Neuro function grossly intact. Cardiovascular status: normal Respiratory status: normal Airway patency: baseline Mental status: baseline Post-Op hydration status: normal Vital Signs: Last Vital Signs Temp 36.4 C 10/21/21 07:50 Pulse 66 10/21/21 07:50 Resp 18 10/21/21 07:50 BP 89/42 L 10/21/21 07:50 Pulse Ox 100 10/21/21 07:50 Pain score (VAS): 0 I/O: Intake & Output 10/20/21 10/21/21 10/21/21 23:59 07:59 15:59 Intake Total 500 Balance 500 Post-procedural complaints: none Patient feedback: Patient satisfied with anesthetic care.
--- NOTE | 2021-10-21 10:00 | PC.NURSE ---
Patient instructed to view the discharge video Mother & Baby Care, The First Two Weeks . Patient was given the opportunity and encouraged to ask questions. Patient verbalized understanding of information shared and has been given the mother/baby guide for home reference.
[2021-10-21 11:56] VITALS: BP 97/54; PULSE 66; RESP 18; TEMP 36.4; O2SAT 100
[2021-10-24 10:57] VITALS: BP 98/58; PULSE 77; RESP 20; TEMP 36.9; O2SAT 100
== END 2021-10-21 13:30 | disposition home or self-care (01) | DRG 560 ==
LOC: ANHLDR 12:36 → ANHOB2 10-21 08:04 → ANHLDR 10-24 10:19 → ANHOB2 10-24 10:19
PROVIDERS: Admitting Provider Obstetrics & Gynecology; Visit Provider Student in an Organized Health Care Education/Training Program
DX: O70.1 Second degree perineal laceration during delivery (principal); Z37.0 Single live birth; Z3A.39 39 weeks gestation of pregnancy
CPT/HCPCS: 36415; 80053; 84550; 85014; 85018; 85025; 85055; 86592; 86850; 86900; 86901; A9270; J2590; J2795; J7120

== ENCOUNTER 2023-04-08 19:26 | Emergency (ER) | payer OTHER, SELFPAY ==
[2023-04-08] VITALS (7 sets, daily range): BP systolic 95–106; BP diastolic 53–72; PULSE 84–136; RESP 15–21; TEMP 36.6; O2SAT 98–100
--- NOTE | ~2023-04-08 | CT_ITS ---
EXAMINATION: CT abdomen pelvis wo con DATE: 04/08/2023 21:11 INDICATION: Flank pain. Urinary tract infection. TECHNIQUE: Computed tomography (CT) of the abdomen and pelvis was performed without intravenous contr ast. Automated exposure control and iterative reconstruction technique were employed. The dose-length product was 306.65 mGy-cm. COMPARISON: 09/05/2018 FINDINGS: Lung bases are clear. Heart size is normal. No pericardial or pleural effusion. Liver, gallbladder, s pleen, pancreas and bilateral adrenal glands are normal. 2 mm and 4 mm stones in a lower pole calyx o f the right kidney. Bladder is normal. T-shaped IUD in expected position within the retroverted uteru s. Bilateral adnexa are unremarkable. Normal appendix. Moderate to large amount of stool scattered th roughout the colon. No bowel obstruction. Small amount of likely physiologic free fluid in the cul-de-sac. No pathologically enlarged abdominal or pelvic lymphadenopathy. Subtle subarticular sclerosis and suggestion of a couple small erosions a long the bilateral sacral iliac joints suggestive of a mild bilateral sacroiliitis. IMPRESSION: 1. A couple nonobstructing right renal stones. 2. T-shaped IUD in expected position. Reviewed, dictated and finalized at location A.
[2023-04-08] MEDS: SODIUM CHLORIDE 0.9% IV 1,000 ML 999 ML IV CONT (20:11)
[2023-04-08] MEDS: ONDANSETRON INJ 4 MG/2 ML VIAL IV PUSH (20:12)
[2023-04-08] MEDS: KETOROLAC 30 MG/ML VIAL (*BKC) IV PUSH (20:12)
[2023-04-08] MEDS: ACETAMINOPHEN 500 MG TABLET 1000 MG PO (20:12)
[2023-04-08 20:22] LABS: Basophils Percent Auto 0.3 % (0.2-1.2); Eosinophils Percent Auto 0.3 % (0-4.4); Hematocrit 36.9 % (37.0-47.0); Hemoglobin 12.4 g/dL (12.0-15.0); Immature Granulocyte Absolute 0.07 K/mm3 (0.00-0.031); Immature Granulocyte Percent A 0.5 % (0-0.5); Lymphocytes Absolute Auto 1.57 K/mm3 (0.9-3.2); Lymphocytes Percent Auto 10.5 % (18.3-44.2); Mean Corpuscular HGB Conc 33.6 g/dl (32-36); Mean Corpuscular Hemoglobin 29.9 pg (26-34); Mean Corpuscular Volume 88.9 fl (80-100); Monocytes Absolute Auto 1.5 K/mm3 (0.1-0.6); Monocytes Percent Auto 10.3 % (2.6-8.5); Neutrophils Absolute Auto 11.6 K/mm3 (1.3-6.7); Neutrophils Percent Auto 78.1 % (45.5-73.1); Platelet Count Result 278 k/mm3 (150-375); Red Blood Count 4.15 M/mm3 (4.2-5.4); White Blood Count 14.9 K/mm3 (4.5-10.0)
[2023-04-08 20:26] LABS: Appearance Urine Turbid (Clear); Bacteria Urine Rare /hpf; Bilirubin Urine Negative (Negative); Blood Urine 2+ (Negative); Color Urine Yellow (Yellow); Glucose Urine UA Negative (Negative); Ketones Urine Negative (Negative); Leukocyte Esterase Ur 3+ LEU/UL (Negative); Nitrate Urine Negative (Negative); Non Pathogenic Casts 0-2; Protein Urine 1+ mg/dL (Negative); RBC Urine 0-2 /hpf (0-2); Specific Grav Ur 1.016 (1.001-1.035); Squamous Epithelial Cell Urine Occasional /hpf (Few); WBC Urine >100 /hpf
[2023-04-08 20:28] LABS: Add Urine Microscopic? YES
[2023-04-08 20:31] LABS: Lactic Acid Reflex 1.5 mmol/L (0.7-2.0)
[2023-04-08 20:33] LABS: Alanine Aminotransferase 30 U/L (6-35); Albumin Level 3.6 g/dL (3.5-5.1); Alkaline Phosphatase 75 U/L (38-126); Anion Gap 7 mmol/L (8-16); Aspartate Amino Transferase 28 U/L (14-36); Bilirubin,Total 0.3 mg/dL (0.2-1.3); Blood Urea Nitrogen 6 mg/dL (7-17); Calcium 8.4 mg/dL (8.4-10.2); Carbon Dioxide 27 mmol/L (22-30); Chloride 100 mmol/L (98-107); Estimated CRCL calculation 86 ml/min; Estimated Glomerular Filt Rate > 60; Glucose 136 mg/dL (65-110); Potassium 2.9 mmol/L (3.4-5.0); Sodium 134 mmol/L (137-145)
[2023-04-08] MEDS: KCL 20 MEQ/SW 100 ML 100 ML 50 MEQ IVPB (20:52)
[2023-04-08 20:59] LABS: Influenza A QL RT-PCR Negative (Negative); Influenza B QL RT-PCR Negative (Negative); SARS-CoV-2 RNA PCR Negative (Negative)
[2023-04-08] MEDS: SODIUM CHLORIDE 0.9% IV 1,000 ML 150 ML (21:17)
--- NOTE | 2023-04-08 22:12 | ED.GENADULT ---
HPI - General Adult General Chief complaint: Urogenital-Female Stated complaint: kidney infection Time Seen by Provider: 04/08/23 19:40 History of Present Illness HPI narrative: Patient 28-year-old female who presents the emergency department with chief complaint of flank pain and urinary symptoms. The patient reports that she was diagnosed with a UTI has been given Cipro but only taking 2 doses of it patient reports that she has generalized malaise and does not feel well. Patient reports that she had temperature up to 104. Related Data Home Medications Medication Instructions Recorded Confirmed vit no.95-ferrous 1 tablet PO DAILY 02/12/20 10/20/21 fumarate 28 mg-folic acid 800 mcg tablet () fluoxetine 20 mg tablet 40 mg PO DAILY 08/29/21 10/20/21 Allergies Allergy/AdvReac Type Severity Reaction Status Date / Time No Known Allergies Allergy Verified 08/29/21 10:06 Review of Systems Review of Systems: A 10 system review of systems was completed on the patient and is negative except for what is stated in the HPI. Nursing and ancillary documentation was reviewed. [facility] Family History Family History Other No pertinent family history Social History Social History Years smoked: 5 Smoking status: Former smoker Tobacco type: cigarettes Second hand tobacco smoke exposure: No Smoking end date: 04/13/21 Substance use: former Gender identity (if verbalized by the patient): Female Spiritual care concerns: No Exam Narrative: GENERAL: Well-appearing, well-nourished, and in no acute distress. HEAD: Normocephalic, atraumatic. EYES: PERRLA and EOMI. ENT: Nares clear, no rhinorrhea or epistaxis. Mucous membranes moist. NECK: Supple. CHEST: Clear to auscultation. No respiratory distress. HEART: Regular rate and rhythm. No murmur heard. Normal peripheral pulses. ABDOMEN: Soft, nontender, nondistended, normal active bowel sounds. EXTREMITIES: Normal range of motion. No edema. SKIN: Warm, dry, no rash. NEURO: No focal deficits. Alert and oriented x3. PSYCH: Normal mood and affect. Course Vital Signs Vital signs: Vital Signs Temperature 36.6 C 04/08/23 19:27 Pulse Rate 136 H 04/08/23 19:27 Respiratory Rate 20 04/08/23 19:27 Blood Pressure 98/58 L 04/08/23 19:27 Pulse Oximetry 98 04/08/23 19:27 Temperature 36.6 C 04/08/23 19:27 Pulse Rate 84 04/08/23 23:08 Respiratory Rate 18 04/08/23 23:08 Blood Pressure 102/53 L 04/08/23 23:08 Pulse Oximetry 98 04/08/23 23:08 Medical Decision Making MDM Narrative Medical decision making narrative: Differential diagnosis includes obstructive uropathy, UTI renal failure, electrolyte abnormality Studies were obtained the patient which showed a urinalysis with greater than 100 white blood cells electrolytes showed a potassium of 2.9 CBC showed a white count of 14.9. CT scan of the abdomen pelvis showed no evidence of obstructing stone Patient received IV fluids IV potassium and IV Rocephin in the emergency department. Patient reports she is feeling better and would like to try outpatient therapy as she is only taken 2 doses of the Cipro. The patient will be changed to Keflex Vital Signs Vital Signs: Vital Signs Temperature 36.6 C 04/08/23 19:27 Pulse Rate 136 H 04/08/23 19:27 Respiratory Rate 20 04/08/23 19:27 Blood Pressure 98/58 L 04/08/23 19:27 Pulse Oximetry 98 04/08/23 19:27 Temperature 36.6 C 04/08/23 19:27 Pulse Rate 84 04/08/23 23:08 Respiratory Rate 18 04/08/23 23:08 Blood Pressure 102/53 L 04/08/23 23:08 Pulse Oximetry 98 04/08/23 23:08 Lab Data 04/08/23 20:13 04/08/23 20:13 Labs: Lab Results 04/08/23 Range/Units 20:13 WBC 14.9 H (4.5-10.0) K/mm3 RBC 4.15 L
[2023-04-09 00:03] VITALS: BP 106/58; PULSE 85; RESP 14; O2SAT 100
== END 2023-04-09 00:04 | disposition home or self-care (01) ==
PROVIDERS: Emergency Provider Emergency Medicine
DX: N12 Tubulo-interstitial nephritis, not specified as acute or chronic (principal); E87.6 Hypokalemia; Z87.891 Personal history of nicotine dependence; Z20.822 Contact with and (suspected) exposure to COVID-19
CPT/HCPCS: 36415; 74176; 80053; 81001; 81025; 83605; 85025; 87086; 87636; 96361; 96365; 96366; 96367; 96375; 99284; A9270; J0696; J1885; J2405; J3480; J7030

== ENCOUNTER 2024-04-30 18:11 | Emergency (ER) | payer OTHER, SELFPAY ==
[2024-04-30 18:14] VITALS: BP 118/67; PULSE 88; RESP 20; TEMP 36.7; O2SAT 100
--- NOTE | 2024-04-30 19:18 | ED.GENADULT ---
HPI - General Adult General Chief complaint: Upper Respiratory Infection Stated complaint: Sore Throat/Ears Irrtation Source: patient Mode of arrival: ambulatory Limitations: no limitations History of Present Illness HPI narrative: Patient presents for evaluation of sore throat for last 2 days. She denies any fever, chills, nausea, vomiting, cough, shortness of breath, diarrhea. She now has bilateral otalgia. No recent sick contacts to her knowledge. She is not taking any medications over this counter to assist with her symptoms. She does smoke. Related Data Allergies Allergy/AdvReac Type Severity Reaction Status Date / Time Latex, Natural Rubber Allergy Other Verified 04/30/24 19:06 pineapple Allergy Other Verified 04/30/24 19:06 Review of Systems Review of Systems: CONSTITUTIONAL: Denies fever, chills, or sweats. EYES: Denies visual changes, redness, or discharge. ENT: Reports sore throat and bilateral otalgia. Denies rhinorrhea. CARDIOVASCULAR: Denies chest pain, palpitations, or edema. RESPIRATORY: Denies cough or dyspnea. GASTROINTESTINAL: Denies abdominal pain, nausea, vomiting, or diarrhea. GENITOURINARY: Denies dysuria or hematuria. SKIN: Denies rash or itching. MUSCULOSKELETAL: Denies back pain, joint pain, or myalgia. NEUROLOGIC: Denies headache, numbness, dizziness, or weakness. PSYCHIATRIC: Denies anxiety or depression. [facility] Past Medical History Medical History No pertinent past medical history Surgical History Surgical History No pertinent past surgical history Family History Family History Other No pertinent family history Social History Social History Smoking packs per day: 0.25 Smoking cigarettes per day: 5.0 Years smoked: 5 Smoking pack-years: 1.25 Smoking status: Former smoker Tobacco type: cigarettes Second hand tobacco smoke exposure: No Smoking end date: 04/13/21 Substance use: former Gender identity (if verbalized by the patient): Female Spiritual care concerns: No Exam Narrative: GENERAL: Well-appearing, well-nourished, and in no acute distress. HEAD: Normocephalic, atraumatic. EYES: PERRLA and EOMI. ENT: Nares clear, no rhinorrhea or epistaxis. Mucous membranes moist. posterior pharyngeal erythema without exudate. Uvula is midline. Bilateral TMs pearly duncan nonbulging NECK: Supple. No adenopathy or masses. No carotid bruits or JVD CHEST: Clear to auscultation. No respiratory distress. No wheezes rales or rhonchi HEART: Regular rate and rhythm. No murmur heard. Normal peripheral pulses. ABDOMEN: Soft, nontender, nondistended, normal active bowel sounds. EXTREMITIES: Normal range of motion. No edema. SKIN: Warm, dry, no rash. NEURO: No focal deficits. Alert and oriented x3. PSYCH: Normal mood and affect. Course Course Emergency Course: This is a 29-year-old female who presented for evaluation of sore throat. Rapid strep negative. Through shared decision making opted to proceed with antibiotic therapy. Follow-up with primary provider. [id number] agents for symptom management. Increase hydration. Go to the ER for worsening symptoms. Patient is in agreement with plan of care. Level of Care: Express Care Visit Vital Signs Vital signs: Vital Signs Temperature 36.7 C 04/30/24 18:14 Pulse Rate 88 04/30/24 18:14 Respiratory Rate 20 04/30/24 18:14 Blood Pressure 118/67 04/30/24 18:14 Pulse Oximetry 100 04/30/24 18:14 Oxygen Delivery Room Air 04/30/24 18:14 Temperature 36.7 C 04/30/24 18:14 Pulse Rate 88 04/30/24 18:14 Respiratory Rate 20 04/30/24 18:14 Blood Pressure 118/67 04/30/24 18:14 Pulse Oximetry 100 04/30/24 18:14 Oxygen Delivery Ro
== END 2024-04-30 19:20 | disposition home or self-care (01) ==
PROVIDERS: Emergency Provider Nurse Practitioner
DX: J02.9 Acute pharyngitis, unspecified (principal); Z87.891 Personal history of nicotine dependence
CPT/HCPCS: 87081; 99213; G0463